=== PATIENT | male | born 1955 | race Caucasian/White ===

== ENCOUNTER → 2018-11-06 10:13 | Outpatient (CLI) | payer OTHER | END | disposition home or self-care (01) | LOC: D.RAD 10:00 | PROVIDERS: ATTEND Pediatrics | DX: Z02.71 Encounter for disability determination (principal) ==

== ENCOUNTER 2019-10-22 18:50 | Inpatient (IN) | payer MEDICAID ==
[~2019-10-22] VITALS: Ht 177.8 cm; Wt 76.2 kg
[2019-10-22] MEDS ORDERED: ULTRAM50 MG PO (19:00)
[2019-10-22] MEDS ORDERED: OMEPRAZOLE20 M1 PO (19:00)
[2019-10-22] MEDS ORDERED: LOTREL 10-40 M1 EACH PO (19:01)
[2019-10-22] MEDS ORDERED: ATIVAN1 MG PO (19:01)
[2019-10-22 19:38] LABS: BASOPHILS 0.5 % (0-2); EOSINOPHILS 1.9 % (0-7); HEMATOCRIT 33.8 % (42.0-54.0); HEMOGLOBIN 10.6 g/dL (13.5-17.5); IMMATURE GRANULOCYTES 0.2 % (0-5); LYMPHOCYTES 16.7 % (15-50); MCH 23.6 pg (26.0-34.0); MCHC 31.4 g/dL (31.0-37.0); MCV 75.3 fL (80.0-100.0); MEAN PLATELET VOLUME 8.8 fL (7.4-10.4); MONOCYTES 10.2 % (2-11); NEUTROPHILS 70.5 % (40-80); PLATELET COUNT 567 10x3/uL (130-400); RBC 4.49 10x6/uL (4.20-6.10); RDW 14.6 % (11.5-14.5); WBC 10.5 10x3/uL (4.8-10.8)
[2019-10-22 19:43] LABS: BILIRUBIN NEGATIVE (NEGATIVE); GLUCOSE NEGATIVE (NEGATIVE); KETONE NEGATIVE (NEGATIVE); NITRITE NEGATIVE (NEGATIVE); SPECIFIC GRAVITY 1.015 (1.005-1.020); UROBILINOGEN NORMAL (NORMAL)
[2019-10-22 19:46] LABS: ANION GAP 7.3 mmol/L (8-16); CALCIUM 8.7 mg/dL (8.5-10.1); CARBON DIOXIDE 30.6 mmol/L (21.0-32.0); CREATININE - SERUM 1.1 mg/dL (0.6-1.3); POTASSIUM - SERUM 3.9 mmol/L (3.5-5.1)
[2019-10-22 19:51] LABS: ALBUMIN 3.2 g/dL (3.4-5.0); BILIRUBIN - TOTAL 0.37 mg/dL (0.2-1.3); PROTEIN - SERUM 7.6 g/dL (6.4-8.2)
--- NOTE | 2019-10-22 20:28 | NUR ---
PT TO CT.
--- NOTE | 2019-10-22 20:44 | NUR ---
PT BACK FROM CT
[2019-10-23] VITALS: BP 146/76
[2019-10-23 04:00] VITALS: BP 142/80
[2019-10-23 04:47] VITALS: BP 146/76; BMI 24.1
--- NOTE | 2019-10-23 08:00 | NUR ---
ASSESSMENT PER FLOW SHEET. PATIENT IS WITHOUT DISTRESS.FAMILY AT BEDSIDE. CALL LIGHT IN REACH.
[2019-10-23 09:32] VITALS: BP 139/70
[2019-10-23 12:46] VITALS: BMI 24.1
[2019-10-23 13:17] VITALS: BP 152/71
--- NOTE | 2019-10-23 16:30 | NUR ---
TO GI LAB VIA BED
[2019-10-23 20:00] VITALS: BP 125/176
[2019-10-24] VITALS: BP 138/66
[2019-10-24 04:00] VITALS: BP 132/77
--- NOTE | 2019-10-24 06:14 | NUR ---
ASSESSED PT AT THE BEGINNING OF THE SHIFT. GIRLFRIEND HAS BEEN WITH HIM ALL NIGHT. HE STARTED COMPLAINING OF ABDOMINAL PAIN EVEN UP INTO HIS CHEST AT THE BEGINNING OF THE SHIFT. HE STATED HE WAS HAVING TROUBLE WAITING FOR 6 HRS FOR PAIN MEDS. MD WAS CALLED AND TIMES WERE CHANGED TO EVERY 4 HRS. EVEN AFTER WAITING JUST 4 HRS FOR MEDS IT WAS STILL APPARENT THAT HE WAS STILL IN A LOT OF PAIN. A NEW ORDER WAS RECEIVED FOR 1 MG EVERY 4 HRS AND THE LAST TIME HE GOT PAIN MEDS AT JUST AFTER 4 AM HE RECEIVED 1 MG. HE STATED THIS REALLY HELPED.
--- NOTE | 2019-10-24 09:00 | NUR ---
ALERT AND ORIENTEDX4 WITH AT BEDSIDE. DENIES ANY DYSPHASIA. DILAUDID GIVEN FOR PAIN 10/10 AND EFFECTIVE FOR BACK PAIN. UP ADLIB WITH BOWEL SOUNDS NOTED X4. IV TO RT. A/C WITH NO S/S OF INFECITON/INFILTRATION. ENCOURAGED TO USE CALL LIGHT FOR ASSSIT.
[2019-10-24 10:29] VITALS: BP 183/88
[2019-10-24 13:47] VITALS: BP 179/79
[2019-10-24 18:03] VITALS: BP 170/69
[2019-10-24 20:00] VITALS: BP 155/63
[2019-10-25 00:01] VITALS: BP 148/67
[2019-10-25 05:16] VITALS: BP 150/64
[2019-10-25 07:54] LABS: BASOPHILS 0.5 % (0-2); EOSINOPHILS 2.2 % (0-7); HEMATOCRIT 33.7 % (42.0-54.0); HEMOGLOBIN 10.3 g/dL (13.5-17.5); IMMATURE GRANULOCYTES 0.1 % (0-5); LYMPHOCYTES 15.3 % (15-50); MCH 23.4 pg (26.0-34.0); MCHC 30.6 g/dL (31.0-37.0); MCV 76.6 fL (80.0-100.0); MEAN PLATELET VOLUME 8.9 fL (7.4-10.4); MONOCYTES 11.2 % (2-11); NEUTROPHILS 70.7 % (40-80); PLATELET COUNT 548 10x3/uL (130-400); RDW 14.8 % (11.5-14.5); WBC 8.6 10x3/uL (4.8-10.8)
--- NOTE | 2019-10-25 08:04 | NUR ---
PATIENT ALERT AND ORIENTED SITTING IN CHAIR WATCHING TV. RIGHT AC NS AT 75ML/HR. NO SIGNS OF DISTRESS NOTED. DENIES FURTHER NEEDS. WILL CONTINUE TO MONITOR FOR SAFETY.
[2019-10-25 08:08] LABS: CALC OSMOLALITY 268 mosm/kg (275-300); CALCIUM 8.8 mg/dL (8.5-10.1); CHLORIDE - SERUM 101 mmol/L (98-107); CREATININE - SERUM 0.9 mg/dL (0.6-1.3); GLUCOSE 119 mg/dL (74-106); POTASSIUM - SERUM 3.8 mmol/L (3.5-5.1); SODIUM 135 mmol/L (136-145); UREA NITROGEN 8 mg/dL (7-18); eGFR NON AFRICAN AMERICAN > 90 mL/min (90-120)
[2019-10-25 08:13] LABS: MAGNESIUM - SERUM 2.1 mg/dL (1.8-2.4); PHOSPHOROUS 3.9 mg/dL (2.5-4.9)
[2019-10-25 10:39] VITALS: BP 155/82
[2019-10-25] MEDS ORDERED: OMEPRAZOLE20 M1 PO (10:40)
[2019-10-25] MEDS ORDERED: MORPHINE SULFAT30 M6 PO (11:05)
[2019-10-25] MEDS ORDERED: HYDROCODON-ACE1 EA10 PO (11:06)
[2019-10-25 11:17] VITALS: Ht 177.8 cm; Wt 76.2 kg
--- NOTE | 2019-10-25 11:42 | NUR ---
DISCHARGED PATIENT HOME WITH FAMILY. DISCONTINUED IV, CATHETER TIP INTACT. WENT OVER DISCHARGE INFORMATION WITH PATIENT AND , VERBALIZED UNDERSTANDING OF INSTRUCTIONS. DENIES ANYTHING FURTHER.
--- NOTE | 2019-10-26 22:15 | MORECARE ---
CASE MANAGEMENT DISCHARGE SUMMARY PATIENT: YANNICK LAMBERT UNIT: [id number] ADM DATE: 10/22/19 AGE: 64 : 57 SEX: M ROOM/BED: D.2213 AUTHOR: ANNABELLE CANTU PHYSICIAN: REFERRING PHYSICIAN: ADRIEL GRUBBS MD DATE OF SERVICE: 10/26/19 Discharge Plan Patient Name: YANNICK LAMBERT Facility: [facility] : 1955 Planned Disposition: Home Anticipated Discharge Date: Discharge Date: 10/25/2019 Expected LOS: Initial Reviewer: [email or web address] Initial Review Date: 10/25/2019 Generated: 10/26/19 11:15 pm Comments DCP- Discharge Planning Updated by [email or web address]: Dana Linton on 10/26/19 9:[address] Late Entry 10/25/19 Patient Name: YANNICK LAMBERT Admission Status: Elective Accout number: [id number] Admission Date: 10-22-2019 : 1955 Admission Diagnosis:DISEASE OF ESOPHAGUS, UNSPECIFIED Attending: ZAIN Current LOS: 3 Anticipated DC Date: Planned Disposition: Primary Insurance: [facility] [employer] Discharge Planning Comments: CM met with patient to complete initial dc planning assessment. CM educated patient on the CM role and verbal consent given by patient to complete assessment. Patient lives at home with family. Patient is independent. At discharge patient plans to return home and feels this is a safe discharge. CM discussed availability of home health, rehab services, and medical equipment. Patient will have family to transport home. Patient denied known discharge needs at this time. CM will continue to follow and will assist as needed with dc plans/needs. Digital Ad Trafficker: Dana Linton Patient Name: YANNICK LAMBERT Page [id number] at 2215 All edits/amendments must be made on the electronic document DICTATION DATE: 10/26/192214 COMPLIANCE PROJECT MANAGER: JOHANNA 10/26/192214 RPT#: [id number] DC DATE:10/25/19 STATUS: DIS IN [place] [id number] [place] [address] END OF REPORT
--- NOTE | 2019-10-26 22:24 | MORECARE ---
CASE MANAGEMENT DISCHARGE SUMMARY PATIENT: YANNICK LAMBERT UNIT: [id number] ADM DATE: 10/22/19 AGE: 64 : 57 SEX: M ROOM/BED: D.2213 AUTHOR: ALONDRA,DOC PHYSICIAN: REFERRING PHYSICIAN: ADRIEL GRUBBS MD DATE OF SERVICE: 10/26/19 Discharge Plan Patient Name: YANNICK LAMBERT Facility: [facility]:[place] : 1955 Planned Disposition: Home Anticipated Discharge Date: Discharge Date: 10/25/2019 Expected LOS: Initial Reviewer: [email or web address] Initial Review Date: 10/25/2019 Generated: 10/26/19 11:23 pm Comments DCP- Discharge Planning Updated by [email or web address]: Dana Linton on 10/26/19 9:[address] Late Entry 10/25/19 Patient Name: YANNICK LAMBERT Admission Status: Elective Accout number: [id number] Admission Date: 10-22-2019 : 1955 Admission Diagnosis:DISEASE OF ESOPHAGUS, UNSPECIFIED Attending: ZAIN Current LOS: 3 Anticipated DC Date: Planned Disposition: Primary Insurance: [employer] Discharge Planning Comments: CM met with patient to complete initial dc planning assessment. CM educated patient on the CM role and verbal consent given by patient to complete assessment. Patient lives at home with family. Patient is independent. At discharge patient plans to return home and feels this is a safe discharge. CM discussed availability of home health, rehab services, and medical equipment. Patient will have family to transport home. Patient denied known discharge needs at this time. CM will continue to follow and will assist as needed with dc plans/needs. Forming Press Operator: Dana Linton DCPIA - Discharge Planning Initial Assessment Updated by [email or web address]: Dana Linton on 10/26/19 10:15 pm * Is the patient Alert and Oriented? Yes * How many steps to enter\exit or inside your home? * PCP DEBBY * Pharmacy [facility] -[facility] * Preadmission Environment Home with Family * ADLs Independent * Equipment None * List name and contact numbers for known caregivers / representatives who currently or will assist patient after discharge: ADAN LAMBERT - SON - [phone] * Verbal permission to speak to the caregivers and representatives has been obtained from the patient. Yes * Community resources currently utilized None * Additional services required to return to the preadmission environment? No * Can the patient safely return to the preadmission environment? Yes * Has this patient been hospitalized within the prior 30 days at any hospital? No Last DP export: 10/26/19 9:16 p Patient Name: YANNICK LAMBERT Page [id number] at 2224 All edits/amendments must be made on the electronic document DICTATION DATE: 10/26/192222 CELERY WRAPPER: JOHANNA 10/26/192222 RPT#: [id number] DC DATE:10/25/19 STATUS: DIS IN [facility] [address] [place] [address] END OF REPORT
== END 2019-10-25 11:42 | disposition home or self-care (01) | DRG 375 ==
LOC: D.ER 18:50 → D.MS 21:00
PROVIDERS: Family Medicine; ADMIT Family Medicine; ATTEND Family Medicine
PROC: 0DB58ZX Excision of Esophagus, Via Natural or Artificial Opening Endoscopic, Diagnostic (ICD-10-PCS; principal; 2019-10-24)
PROC: 0DB68ZX Excision of Stomach, Via Natural or Artificial Opening Endoscopic, Diagnostic (ICD-10-PCS; 2019-10-24)
DX: C15.9 Malignant neoplasm of esophagus, unspecified (principal); E87.1 Hypo-osmolality and hyponatremia; D50.9 Iron deficiency anemia, unspecified; I10 Essential (primary) hypertension; K21.9 Gastro-esophageal reflux disease without esophagitis; F41.9 Anxiety disorder, unspecified

== ENCOUNTER 2019-11-13 06:16 | Day surgery (SDC) | payer MEDICAID ==
[~2019-11-13] VITALS: Ht 177.8 cm; Wt 74.8 kg
[~2019-11-13 06:16] MED LIST: ATIVAN1 MG PO; HYDROCODON-ACE1 EA10 PO; LOTREL 10-40 M1 EACH PO; MORPHINE SULFAT30 M6 PO; OMEPRAZOLE20 M1 PO; ULTRAM50 MG PO
[2019-11-13 06:38] LABS: BASOPHILS 0.3 % (0-2); EOSINOPHILS 3.4 % (0-7); HEMATOCRIT 25.9 % (42.0-54.0); HEMOGLOBIN 7.7 g/dL (13.5-17.5); IMMATURE GRANULOCYTES 0.2 % (0-5); MCH 23.2 pg (26.0-34.0); MCHC 29.7 g/dL (31.0-37.0); MEAN PLATELET VOLUME 8.7 fL (7.4-10.4); MONOCYTES 12.2 % (2-11); NEUTROPHILS 71.9 % (40-80); PLATELET COUNT 594 10x3/uL (130-400); RBC 3.32 10x6/uL (4.20-6.10); RDW 17.5 % (11.5-14.5); WBC 9.2 10x3/uL (4.8-10.8)
[2019-11-13 06:51] LABS: APTT 41.6 SECONDS (22.8-39.4); INR 1.01 (0.85-1.17); PROTIME 13.3 SECONDS (11.6-15.0)
[2019-11-13] MEDS ORDERED: LOTREL 10-40 M1 EACH PO (07:01)
[2019-11-13 07:08] VITALS: BP 151/80; Ht 177.8 cm; Wt 74.8 kg
[2019-11-13 07:14] LABS: CALC OSMOLALITY 274 mosm/kg (275-300); CALCIUM 8.6 mg/dL (8.5-10.1); CARBON DIOXIDE 36.3 mmol/L (21.0-32.0); CHLORIDE - SERUM 102 mmol/L (98-107); GLUCOSE 102 mg/dL (74-106); POTASSIUM - SERUM 3.9 mmol/L (3.5-5.1); SODIUM 138 mmol/L (136-145); UREA NITROGEN 10 mg/dL (7-18); eGFR NON AFRICAN AMERICAN 80 mL/min (90-120)
--- NOTE | 2019-11-13 07:28 | NUR ---
CONTACTED DR LINDO WITH BLOOD COUNTS. NO NEW ORDERS RECIEVED. ORDERS TO GO AHEAD AND GIVE LOVENOX.
--- NOTE | 2019-11-13 07:33 | NUR ---
NOTIFIED STEVEN REYNOSO THAT PATIENT SPENT NIGHT IN [facility] ONE WEEK AGO. STATES NOT HIGH RISK. NO FURTHER ORDERS.
[2019-11-13] MEDS ORDERED: HYDROCODON-ACE1 EAC7 PO (09:10)
--- NOTE | 2019-11-13 10:58 | NUR ---
1020 IV DC'D. CATHETER TIP INTACT. NO BLEEDING AT SITE. COBAN DRESSING APPLIED TO IV SITE.
== END 2019-11-13 10:48 | disposition home or self-care (01) ==
LOC: D.OPS 06:16
PROVIDERS: Anesthesiology; ATTEND Surgery
DX: C15.9 Malignant neoplasm of esophagus, unspecified (principal)

== ENCOUNTER 2019-11-18 13:49 | Outpatient (CLI) | payer MEDICAID ==
[~2019-11-18] VITALS: Ht 177.8 cm; Wt 77.3 kg
[~2019-11-18 13:49] MED LIST changes: +HYDROCODON-ACE1 EAC7 PO
[2019-11-18 14:37] VITALS: BP 132/62; Ht 177.8 cm; Wt 77.3 kg
--- NOTE | 2019-11-18 15:48 | NUR ---
1535 BLOOD CHECKED AT BEDSIDE BY THIS NURSE AND WILMER GUZMAN RN, INITIATED AT 50/CC/HR WITHOUT PROBLEMS. CALL LIGHT AT BEDSIDE. DRINKING WATER. PRE-MEDS WERE GIVEN.
--- NOTE | 2019-11-18 15:57 | NUR ---
1555 NO PROBLEMS WITH TRANSFUSION, RATE INCREASED TO 275/CC/HR. FL DIET ORDERED.
--- NOTE | 2019-11-18 16:11 | NUR ---
1610 ROOM CHECK, PT. WATCHING TV, DENIES PROBLEMS.
--- NOTE | 2019-11-18 16:39 | NUR ---
1638 SOFT DIET SERVED. BLOOD GOING WELL, WITHOUT PROBLEMS.
--- NOTE | 2019-11-18 17:30 | NUR ---
1652 1ST UNIT BLOOD HAS COMPLETED, LINE BEING FLUSHED WITH NS. 1705 2ND UNIT CHECKED AT BEDSIDE BY THIS NURSE AND WILMER GUZMAN RN, NUMBERS CORRECT. LASIX 20MG IV GIVEN BETWEEN UNITS. 1720 PT. HAS BEEN UP TO BR VOIDED DENIES PROBLEMS WITH BLOOD, RATE INCREASED TO 275/CC/HR. PT. CONTINUES TO EAT SOFT DIET.
--- NOTE | 2019-11-18 18:09 | NUR ---
1750 DENIES PROBLEMS ON ROOM CHECK, IV SITE GOOD. 1810 UP TO BR VOIDS QS. DENIED NEEDS.
--- NOTE | 2019-11-18 18:33 | NUR ---
1830 BLOOD HAS COMPLETED, LINE BEING FLUSHED WITH NS. PT. ATE 30% SOFT DIET.
--- NOTE | 2019-11-18 19:24 | NUR ---
1900 BLOOD X2 HAS COMPLETED LINE FLUSHED, PT DENIED PROBLEMS, DC IV WITH CATH INTACT DC INSTS GIVEN VOICED UNDERSTANDING PT. VOIDS QS. RELEASED IN WC. PT TO DRIVE SELF HOME. STATES HE FEELS ABLE.
== END 2019-11-18 19:05 | disposition home or self-care (01) ==
LOC: D.OPS 13:49
PROVIDERS: ATTEND Internal Medicine Hematology & Oncology
DX: C15.8 Malignant neoplasm of overlapping sites of esophagus (principal); D50.9 Iron deficiency anemia, unspecified

== ENCOUNTER 2019-12-30 03:32 | Inpatient (IN) | payer MEDICAID ==
[2019-12-30] VITALS (23 sets, daily range): BP systolic 135–175; BP diastolic 69–100; BMI 20.9
[~2019-12-30] VITALS: Ht 177.8 cm; Wt 67.0 kg
[2019-12-30 04:22] LABS: BASOPHILS 0.1 % (0-2); EOSINOPHILS 0.2 % (0-7); HEMATOCRIT 28.1 % (42.0-54.0); HEMOGLOBIN 8.6 g/dL (13.5-17.5); IMMATURE GRANULOCYTES 0.5 % (0-5); LYMPHOCYTES 4.8 % (15-50); MCH 23.3 pg (26.0-34.0); MCHC 30.6 g/dL (31.0-37.0); MCV 76.2 fL (80.0-100.0); MEAN PLATELET VOLUME 8.8 fL (7.4-10.4); MONOCYTES 10.2 % (2-11); NEUTROPHILS 84.2 % (40-80); RBC 3.69 10x6/uL (4.20-6.10); RDW 21.4 % (11.5-14.5); WBC 18.7 10x3/uL (4.8-10.8)
[2019-12-30 04:23] LABS: PLATELET COUNT 994 10x3/uL (130-400)
[2019-12-30 04:44] LABS: CALC OSMOLALITY 270 mosm/kg (275-300); CALCIUM 8.7 mg/dL (8.5-10.1); CARBON DIOXIDE 25.1 mmol/L (21.0-32.0); CHLORIDE - SERUM 101 mmol/L (98-107); GLUCOSE 122 mg/dL (74-106); POTASSIUM - SERUM 3.8 mmol/L (3.5-5.1); SODIUM 134 mmol/L (136-145); UREA NITROGEN 17 mg/dL (7-18); eGFR NON AFRICAN AMERICAN 80 mL/min (90-120)
[2019-12-30 04:47] LABS: APTT 36.3 SECONDS (22.8-39.4); INR 1.01 (0.85-1.17); PROTIME 13.2 SECONDS (11.6-15.0)
[2019-12-30 04:57] LABS: ALKALINE PHOSPHATASE 75 U/L (30-120); ALT (SGPT) 8 U/L (10-68); AMYLASE - SERUM 20 U/L (25-115); BILIRUBIN - TOTAL 0.23 mg/dL (0.2-1.3); CKMB 0.5 U/L (0.0-3.6); CREATINE KINASE 20 UL (21-232); MAGNESIUM - SERUM 1.9 mg/dL (1.8-2.4); PROTEIN - SERUM 7.1 g/dL (6.4-8.2); TROPONIN-I < 0.017 ng/mL (0.000-0.060)
[2019-12-30 05:06] LABS: LIPASE 29 U/L (73-393)
[2019-12-30 08:11] LABS: HEMATOCRIT 26.5 % (42.0-54.0); HEMOGLOBIN 8.1 g/dL (13.5-17.5)
--- NOTE | 2019-12-30 09:15 | NUR ---
CONTINUES TO C/O PAIN AND NAUSEA. PRN MEDS OF MORPHINE AND ZOFRAN PROVIDED.
--- NOTE | 2019-12-30 11:04 | NUR ---
BLOOD DRAWN FROM PORT AND SENT TO THE LAB.
[2019-12-30 11:09] LABS: HEMATOCRIT 26.1 % (42.0-54.0)
[2019-12-30 14:55] LABS: HEMATOCRIT 25.6 % (42.0-54.0); HEMOGLOBIN 7.9 g/dL (13.5-17.5)
--- NOTE | 2019-12-30 15:45 | NUR ---
PT ARRIVED TO UNIT AT THIS TIME VIA BED ACCOMPANIED BY ER STAFF WITH PERSONAL ITEMS. VSS. NO ACUTE DISTRESS NOTED. PT ALERT AND ORIENTED. C/O STILL HAVING NAUSEA BUT NO VOMITING FOR A FEW HOURS PER PT, HOWEVER SOME SPITTING UP STILL DOES OCCUR. PT STATES THAT WHEN HE STARTED VOMITING AT HOME EMESIS WAS BRIGHT RED BUT NOW EMESIS IS CLEAR WITH SOME RED. CALL LIGHT IN REACH. WILL CONTINUE PLAN OF CARE.
[2019-12-30] MEDS ORDERED: ZOFRAN4 MG PO (16:15)
[2019-12-30] MEDS ORDERED: PHENERGAN25 M1 PO (16:16)
--- NOTE | 2019-12-30 16:22 | NUR ---
DR CHILDS HERE TO SEE PT, STATED WILL HOLD OFF ON PRBC ADMIN UNTIL SEE WHAT 2044 REDRAW SHOWS AND IF HGB HAS DECREASED ANY MORE THAN 7.9 THEN ADMIN 2 U PRBC. ALSO STATED AFTER 2044 REDRAW TO THEN CHANGE SERIAL Q6H H&H TO Q8H.
--- NOTE | 2019-12-30 17:21 | NUR ---
DR ACOSTA PAGED REGARDING PRN PAIN MED ORDER CLARIFICATION.
--- NOTE | 2019-12-30 17:48 | NUR ---
DR VACA HERE TO SEE PT.
--- NOTE | 2019-12-30 21:00 | NUR ---
PT TEMP 100.7, TREVOR PINEDO APN ON UNIT- NOTIFIED. ORDERS GIVEN FOR PO TYLENOL. SEE MAR.
[2019-12-30 21:18] LABS: HEMATOCRIT 24.4 % (42.0-54.0)
[2019-12-30 21:28] LABS: HEMOGLOBIN 7.5 g/dL (13.5-17.5)
--- NOTE | 2019-12-30 21:50 | NUR ---
REC'D CALL FROM LAB REGARDING ORDERED 2 UNITS PRBC. ONLY 1 UNIT OF O NEG AVAILABLE AT THIS TIME. LAB STATES MORE IS BEING DELIVERED TO FACILITY IN 2-3 HOURS.
--- NOTE | 2019-12-30 22:15 | NUR ---
FIRST UNIT OF PRBC INITIATED AT THIS TIME.
[2019-12-31] VITALS (19 sets, daily range): BP systolic 133–162; BP diastolic 72–88; Ht 177.8 cm; Wt 67.0 kg
--- NOTE | 2019-12-31 01:45 | NUR ---
LAB CONTACTED ABOUT O NEG AVAILABILITY, STATES THAT THEY HAVE REC'D SOME AND WILL NOTIFY WHEN ITS READY.
[2019-12-31 06:45] LABS: BASOPHILS 0.2 % (0-2); EOSINOPHILS 0.1 % (0-7); IMMATURE GRANULOCYTES 0.5 % (0-5); LYMPHOCYTES 6.6 % (15-50); MCH 25.3 pg (26.0-34.0); MEAN PLATELET VOLUME 9.1 fL (7.4-10.4); MONOCYTES 10.2 % (2-11); NEUTROPHILS 82.4 % (40-80); RBC 3.75 10x6/uL (4.20-6.10); RDW 21.2 % (11.5-14.5); WBC 19.2 10x3/uL (4.8-10.8)
[2019-12-31 06:46] LABS: HEMATOCRIT 29.7 % (42.0-54.0); HEMOGLOBIN 9.5 g/dL (13.5-17.5); MCV 79.2 fL (80.0-100.0); PLATELET COUNT 749 10x3/uL (130-400)
[2019-12-31 06:56] LABS: ALBUMIN 2.8 g/dL (3.4-5.0); ALKALINE PHOSPHATASE 65 U/L (30-120); ALT (SGPT) 10 U/L (10-68); CALC OSMOLALITY 264 mosm/kg (275-300); CALCIUM 8.5 mg/dL (8.5-10.1); CARBON DIOXIDE 24.1 mmol/L (21.0-32.0); CHLORIDE - SERUM 100 mmol/L (98-107); CREATININE - SERUM 0.8 mg/dL (0.6-1.3); GLUCOSE 102 mg/dL (74-106); MAGNESIUM - SERUM 1.8 mg/dL (1.8-2.4); POTASSIUM - SERUM 3.7 mmol/L (3.5-5.1); PROTEIN - SERUM 6.5 g/dL (6.4-8.2); SODIUM 132 mmol/L (136-145); eGFR NON AFRICAN AMERICAN > 90 mL/min (90-120)
[2019-12-31 07:02] LABS: UREA NITROGEN 12 mg/dL (7-18)
--- NOTE | 2019-12-31 09:58 | NUR ---
PATIENT RESTING COMFORTABLY WITH EYES CLOSED. BED IN LOW POSITION AND CALL LIGHT WITHIN REACH. DENIES OTHER NEEDS AT THIS TIME.
--- NOTE | 2019-12-31 12:28 | NUR ---
DR NAIR AT BEDSIDE AT THIS TIME DISCUSSING PLAN OF CARE WITH PATIENT. PATIENT DENIES NEEDS AT THIS TIME. BED IN LOW POSITION AND CALL LIGHT WITHIN REACH.
[2019-12-31 13:52] LABS: HEMATOCRIT 30.2 % (42.0-54.0); HEMOGLOBIN 9.6 g/dL (13.5-17.5)
[2019-12-31 17:27] LABS: BILIRUBIN NEGATIVE (NEGATIVE); KETONE NEGATIVE (NEGATIVE); NITRITE NEGATIVE (NEGATIVE); UROBILINOGEN NORMAL (NORMAL)
--- NOTE | 2019-12-31 17:45 | NUR ---
HANDOFF REPORT GIVEN TO NORMA HOWE RN. WILL TRANSPORT PATIENT TO 2217 AT THIS TIME.
--- NOTE | 2019-12-31 20:00 | NUR ---
PT SITTING UP IN BED WITHOUT DISTRESS, AOX4. FAMILY AT BEDSIDE. IV LEFT FA SL. LEFT CHEST PORT INFUSING NS @ 125 AND PROTONIX @ 10. PT STATES PAIN 12/14, WILL GIVE MORPHINE ORDERED. DENIES OTHER NEEDS AT THIS TIME. CL IN REACH, WILL CTM
[2019-12-31 22:08] LABS: HEMATOCRIT 31.4 % (42.0-54.0)
[2020-01-01] VITALS: BP 153/84
[2020-01-01 04:00] VITALS: BP 153/77
[2020-01-01 06:55] LABS: BASOPHILS 0.3 % (0-2); EOSINOPHILS 0.2 % (0-7); HEMATOCRIT 30.5 % (42.0-54.0); HEMOGLOBIN 9.7 g/dL (13.5-17.5); IMMATURE GRANULOCYTES 0.3 % (0-5); LYMPHOCYTES 8.1 % (15-50); MCH 25.1 pg (26.0-34.0); MCHC 31.8 g/dL (31.0-37.0); MCV 78.8 fL (80.0-100.0); MEAN PLATELET VOLUME 9.3 fL (7.4-10.4); MONOCYTES 8.2 % (2-11); NEUTROPHILS 82.9 % (40-80); PLATELET COUNT 697 10x3/uL (130-400); RBC 3.87 10x6/uL (4.20-6.10); RDW 20.8 % (11.5-14.5)
[2020-01-01 06:56] LABS: WBC 12.2 10x3/uL (4.8-10.8)
[2020-01-01 07:09] LABS: ALBUMIN 2.7 g/dL (3.4-5.0); ALKALINE PHOSPHATASE 60 U/L (30-120); ALT (SGPT) 9 U/L (10-68); BILIRUBIN - TOTAL 0.71 mg/dL (0.2-1.3); CALC OSMOLALITY 264 mosm/kg (275-300); CALCIUM 8.8 mg/dL (8.5-10.1); CARBON DIOXIDE 24.7 mmol/L (21.0-32.0); CHLORIDE - SERUM 98 mmol/L (98-107); CREATININE - SERUM 0.7 mg/dL (0.6-1.3); GLUCOSE 94 mg/dL (74-106); MAGNESIUM - SERUM 1.7 mg/dL (1.8-2.4); POTASSIUM - SERUM 3.4 mmol/L (3.5-5.1); PROTEIN - SERUM 6.6 g/dL (6.4-8.2); SODIUM 132 mmol/L (136-145); UREA NITROGEN 12 mg/dL (7-18); eGFR NON AFRICAN AMERICAN > 90 mL/min (90-120)
[2020-01-01 08:12] VITALS: BP 122/76
[2020-01-01 12:02] VITALS: BP 129/74
--- NOTE | 2020-01-01 15:20 | NUR ---
PATIENT TO DC HOME. HE IS WITHOUT DISTRESS.FAMILY AT BEDSIDE
--- NOTE | 2020-01-01 16:12 | NUR ---
PORT FLUSHED AND NEEDLE DCD. IV DCD WITH CATH TIP INTACT.DISCHARGE INSTRUCTIONS,STATES UNDERSTANDING.PATIENT HAS SCRIPT FOR PAIN MEDS PER DR VACA.
--- NOTE | 2020-01-01 16:27 | NUR ---
LEFT UNIT VIA WHEELCHAIR FOR TRANSPORT HOME
== END 2020-01-01 16:28 | disposition home or self-care (01) | DRG 375 ==
LOC: D.ER 03:32 → D.EDHOLD 08:00 → D.ICU 08:00 → D.MS 08:00 → D.ICU 12:39 → D.MS 12-31 18:21
PROVIDERS: Family Medicine; Internal Medicine Gastroenterology; ADMIT Family Medicine; ATTEND Family Medicine
DX: C15.9 Malignant neoplasm of esophagus, unspecified (principal); K92.0 Hematemesis; D62 Acute posthemorrhagic anemia; E87.1 Hypo-osmolality and hyponatremia; D50.9 Iron deficiency anemia, unspecified; K21.9 Gastro-esophageal reflux disease without esophagitis; I10 Essential (primary) hypertension; F41.9 Anxiety disorder, unspecified; D47.3 Essential (hemorrhagic) thrombocythemia